=== PATIENT | male | born 1960 | race Caucasian/White ===

== ENCOUNTER 2020-12-10 16:28 | Emergency (ER) | payer MEDICARE, OTHER, SELFPAY ==
--- NOTE | ~2020-12-10 | XR_ITS ---
EXAMINATION: XR FINGER, LEFT CLINICAL INFORMATION: Crush injury second finger COMPARISON: None TECHNIQUE: Three views of the left second finger. FINDINGS: Deep soft tissue laceration along the undersurface of the second finger. There is associated soft tissue swelling. No radiopaque foreign body identified. No fracture of the second finger. PIP and DIP joint spaces are well-maintained. XR/XR finger LT min 2V IMPRESSION: Soft tissue laceration without fracture or radiopaque foreign body.
[2020-12-10 16:59] VITALS: BP 126/76; PULSE 84; RESP 18; TEMP 36.7; O2SAT 99; BMI 25.7
--- NOTE | 2020-12-10 17:50 | ED.WOUNDLAC ---
HPI - Wound/Laceration General Chief Complaint: Wound/Laceration Stated Complaint: Finger lac Time Seen by Provider: 12/10/20 17:41 Source: patient Mode of arrival: ambulatory History of Present Illness HPI narrative: 60-year-old male presenting to the ED complaining of crush injury to left 2nd digit after car axle falling on hand around 4:00 p.m. Denies injury to other area, numbness, tingling or weakness. Tetanus out of date Onset (ago): hour(s) Related Data Previous Rx's Medication Instructions Recorded cephalexin 500 mg PO QID 7 Days #28 cap 12/10/20 Allergies Allergy/AdvReac Type Severity Reaction Status Date / Time No Known Allergies Allergy Verified 12/10/20 17:03 Review of Systems Review of Systems: Constitutional: No Fever, No Chills Musculoskeletal: + joint pain, No Myalgias, No Joint Swelling Skin: + Skin Lesions, No rash Neuro: No Weakness, No Numbness, No Paresthesias Yes all other systems are reviewed and are negative [facility] Past Medical History Attestation statement: The following information was validated with the patient. Medical History (Updated 12/10/20 @ 18:26 by TOMASZ Phipps) Amputee, foot Social History Social History Advance Directives: No Advance Directives Information Provided: Yes Physical Exam Vital Signs: Vital Signs: Last Vital Signs Temp 98.1 F 12/10/20 16:59 Pulse 84 12/10/20 16:59 Resp 18 12/10/20 16:59 BP 126/76 12/10/20 16:59 Pulse Ox 99 12/10/20 16:59 Body Mass Index 25.7 Const: General: cooperative and healthy appearing Orientation/consciousness: patient oriented x3 Limitations: no limitations HENMT: Head: Yes normal to inspection Ears: hearing grossly normal bilaterally General nose exam: Normal external nose present Face and sinus: Yes normal facial exam Eyes: General: appearance normal, both eyes and all related structures EOM: EOMs intact bilaterally Neck: Neck: Yes normal visual inspection Resp: Effort & Inspection: normal respiratory effort Auscultation: clear to auscultation bilaterally Cardio: Rate: regular rate Peripheral pulses: radial pulses present Skin: Other: 3cm laceration between PIP and DIP of left 1st digit. FROM Digit /hand intact. [id number] opposition intact. Any intact. Sensation intact to light touch. Rashes: no rashes Wounds: no wounds Neuro: General: patient oriented x3 Gait exam (Neuro): Normal gait present Extrem: General: Yes normal to inspection Course Course Course Narrative: - 1825- ED care transferred to [facility] pending CXR results Procedures Laceration Laceration 1: Site: hand Side (If applicable): left Size (cm): 3 Description: flap and irregular Depth: simple, single layer Local Anesthetic: other anesthetic ( finger block) Amount of anesthesia used (mL): 5 Pre-repair: wound explored and irrigated extensively Skin layer closed with: nylon Size (cm): 4-0 Number of sutures: 7 MDM - Wound/Laceration MDM Narrative Medical decision making narrative: 60-year-old male presenting to the ED complaining of crush injury to left 2nd digit after car axle falling on hand around 4:00 p.m. On exam VSS, NAD, physical exam as above. Will obtain x-rays to rule out fracture / open fracture. Plan : repair wound/update tetanus Medical Records Attestation: I reviewed the patient's medical records. Discharge Plan Discharge Clinical Impression: Hand laceration Instructions: Laceration (ED) Additional Instructions: you need to return to any emergency department or urgent care in 7-10 days to have her stitches taken out Keep area dry for 24 hours, after 24 hours you may get wet but only pat dry, do not scrub Keflex as an antibiotic, place take as prescribed Keep area clean, keep a close eye on area if begins to look infected, is red, there is drainage from the area, or you have fever please return to the ED you should follow-up with a hand specialist, Dr. Castañeda Prescriptions: New cephalexin 500 mg capsule 500 mg PO QID 7 Days Qty: 28 RF: 0 Referrals: Adela Guzman MD [Emergency Provider] - 1 week ( return to any emergency department or urgent care in 7-10 days to have your stitches taken out) Lesia Castañeda MD [Physician] - 10 days
[2020-12-10] MEDS: Diphth,Pertus(ACell),Tet Adult 0.5 ML SYRINGE IM (17:51)
[2020-12-10] MEDS: Lidocaine HCl 1 % MPF 5 ML VIAL SUBCUT (17:51)
== END 2020-12-10 18:41 | disposition home or self-care (01) ==
PROVIDERS: Emergency Provider Emergency Medicine
DX: S61.211A Laceration without foreign body of left index finger without damage to nail, initial encounter (principal); W23.1XXA Caught, crushed, jammed, or pinched between stationary objects, initial encounter; Y93.89 Activity, other specified; Y92.9 Unspecified place or not applicable; Y99.9 Unspecified external cause status
CPT/HCPCS: 12002; 73140; 90471; 90715; 99283; 99284